=== PATIENT | female | born 1985 | race African-American/Black ===

== ENCOUNTER 2018-06-16 11:49 | Emergency (ER) | payer OTHER ==
[~2018-06-16] VITALS: Ht 160 cm; Wt 81.7 kg
[~2018-06-16 11:49] MED LIST: ACETAMINOP160 MG/5 M PO; APAP500; APAP500 PO; BISACODYL SUPP10 MG RECTAL; DERMOPLAST SPRA56 ML TOP; DIPHENHIST25 M2 PO; FAMOTIDINE PO; IBUPROFEN 600600 M1 PO; IBUPROFEN 800800 M1; LANOLIN56 GM TOP; MIRALAX255 GM PO; MOM PO; NOHOMEMEDICATIONS; NORCO 5-325 TA1 EACH PO; PEPCID40 MG; PHENERGAN 25 MG25 MG PO; PRENATAL MULTI1 EAC2; PRENATAL PO; PROCARDIA XL60 MG; TUCKS MEDICATE1 EAC1 TOP; ZOFRAN 4 MG ORAL4 M1 DIS; ZOFRAN ODT4 MG DISSOLVE; ZOFRAN ODT4 MG PO; ZOFRAN8 MG
[2018-06-16] MEDS ORDERED: NORVASC5 MG PO (12:04)
[2018-06-16 12:28] LABS: ABSOLUTE NEUTROPHILS 9.4 thou/uL (1.4-8.2); BASOPHILS 0.6 % (0.0-2.0); EOSINOPHILS 1.6 % (0.0-3.0); HEMATOCRIT 41.6 % (37.0-47.0); HEMOGLOBIN 13.5 gm/dL (12.0-15.0); LYMPHOCYTES 14.9 % (24.0-44.0); MCHC 32.4 g/dL (28.0-37.0); MCV 83.1 fL (80.0-100.0); MONOCYTES 6.7 % (1.0-8.0); PLATELET COUNT 314 thou/uL (150-400); POLYS 76.2 % (36.0-66.0); RDW 13.8 % (10.5-14.5); WBC 12.3 thou/uL (4.0-11.0)
[2018-06-16 12:38] LABS: CALCIUM 9.1 mg/dL (8.5-10.1); CREATININE 0.9 mg/dL (0.6-1.0)
[2018-06-16 13:50] LABS: URINE BILIRUBIN NEGATIVE (Negative); URINE BLOOD NEGATIVE (Negative); URINE CLARITY CLEAR; URINE COLOR YELLOW; URINE GLUCOSE-RANDOM* NEGATIVE (Negative); URINE KETONES NEGATIVE (Negative); URINE NITRITE-REFLEX NEGATIVE (Negative); URINE PROTEIN (DIPSTICK) NEGATIVE (Negative); URINE SPECIFIC GRAVITY 1.015 (1.005-1.035); URINE UROBILINOGEN 0.2 E.U./dl (0.2-1.0)
[2018-06-16 13:58] LABS: URINE LEUKOCYTES-REFLEX 1+ (Negative)
[2018-06-16 14:07] LABS: BACTERIA-REFLEX 1-9 Few /HPF (None Seen); CASTS None Seen /LPF (None Seen); CRYSTALS None Seen /LPF (None Seen); SQUAMOUS 0-3 Few /LPF (0-3); URINE RBC None Seen /HPF (0-2); URINE WBC-REFLEX 0-5 Rare /HPF (0-5)
[2018-06-16] MEDS ORDERED: NAPROSYN500 MG PO (15:08)
[2018-06-16] MEDS ORDERED: ZPAK PO (15:08)
[2018-06-16] MEDS ORDERED: MUCINEX D ER 11 EACH PO (15:08)
[2018-06-16] MEDS ORDERED: ZOFRAN4 MG PO (15:08)
== END 2018-06-16 15:20 | disposition home or self-care (01) ==
LOC: ER 11:49
PROVIDERS: Emergency Medicine
DX: J01.20 Acute ethmoidal sinusitis, unspecified (principal); R11.2 Nausea with vomiting, unspecified; I10 Essential (primary) hypertension; J45.909 Unspecified asthma, uncomplicated; Z90.49 Acquired absence of other specified parts of digestive tract

== ENCOUNTER 2020-06-24 07:56 | Emergency (ER) | payer OTHER ==
[~2020-06-24] VITALS: Ht 160 cm; Wt 85.7 kg
[~2020-06-24 07:56] MED LIST changes: +MUCINEX D ER 11 EACH PO; +NAPROSYN500 MG PO; +NORVASC5 MG PO; +ZOFRAN4 MG PO; +ZPAK PO
[2020-06-24 08:33] LABS: URINE BILIRUBIN NEGATIVE (Negative); URINE BLOOD 1+ (Negative); URINE CLARITY CLOUDY; URINE COLOR YELLOW; URINE GLUCOSE-RANDOM* NEGATIVE (Negative); URINE KETONES NEGATIVE (Negative); URINE NITRITE-REFLEX NEGATIVE (Negative); URINE PROTEIN (DIPSTICK) 1+ (Negative); URINE SPECIFIC GRAVITY >= 1.030 (1.005-1.035); URINE UROBILINOGEN 0.2 E.U./dl (0.2-1.0)
[2020-06-24 08:36] LABS: URINE LEUKOCYTES-REFLEX 2+ (Negative)
[2020-06-24 08:38] LABS: SQUAMOUS >10 Many /LPF (0-3)
[2020-06-24 08:39] LABS: BACTERIA-REFLEX >30 Many /HPF (None Seen); CASTS None Seen /LPF (None Seen); CRYSTALS None Seen /LPF (None Seen); URINE RBC 3-10 Few /HPF (0-2); URINE WBC-REFLEX >25 Many /HPF (0-5)
[2020-06-24 10:24] VITALS: BP 171/106
== END 2020-06-24 10:25 | disposition home or self-care (01) ==
LOC: ER 07:56
PROVIDERS: Emergency Medicine
DX: A59.01 Trichomonal vulvovaginitis (principal); I10 Essential (primary) hypertension; J45.909 Unspecified asthma, uncomplicated; Z90.49 Acquired absence of other specified parts of digestive tract; Z79.899 Other long term (current) drug therapy